=== PATIENT | female | born 1930 | race Caucasian/White ===

== ENCOUNTER 2019-01-05 05:42 | Inpatient (IN) ==
[2019-01-05] MEDS ORDERED: ONDANSETRON 4 MG/2 ML VIAL IV STA (06:21)
[2019-01-05] MEDS ORDERED: SODIUM CHLORIDE 0.9% 500 ML IV STA (06:21)
[2019-01-05 06:33] LABS: Basophils % 0.2 % (0.0-0.8); Eosinophils # 0.1 10*3/uL (0.0-0.87); Eosinophils % 0.5 % (0.00-10.9); Hematocrit 40.4 VOL% (35.7-47.0); Hemoglobin 12.8 GM/DL (12.0-16.0); Immature Granulocytes % 0.7 %; Immature Granulocytes Absolute 0.07 #; Lymphocytes # 0.9 10*3/uL (1.4-4.0); Lymphocytes % 8.6 % (21.3-54.2); Mean Corpuscular HGB Conc 31.7 GM/DL (32-36); Mean Corpuscular Volume 86.3 FL (87-102); Mean Platelet Volume 9.2 FL (9.6-12.0); Monocytes % 6.1 % (1.7-12.7); Neutrophils % 83.9 % (38.7-73.9); Platelet Count 202 T/CUMM (130-400); Red Blood Count 4.68 MC/CUMM (3.8-5.5); Red Cell Distribution Width 16.9 % (9.3-17.3); White Blood Count 10.3 T/CUMM (4-12)
[2019-01-05 07:00] LABS: Alanine Aminotransferase 22 U/L (13-56); Albumin 3.8 G/DL (3.4-5.0); Alkaline Phosphatase 64 U/L (45-117); Aspartate Amino Transferase 19 U/L (0-37); Bilirubin,Total < 0.39 MG/DL (0.2-1.0); Blood Urea Nitrogen 20 MG/DL (7-18); Calcium 9.9 MG/DL (8.5-10.1); Glucose 119 MG/DL (74-106); Total Protein 7.2 G/DL (6.4-8.3)
[2019-01-05 08:38] LABS: Apearance,Urine CLEAR (Clear); Bacteria,Urine Occasional /HPF (Few); Bilirubin,Urine Negative (Negative); Blood, Urine Negative (Negative); Glucose,Urine (UA) Negative (Negative); Hyaline Casts,Urine 13 /LPF (0-3); Ketones,Urine Negative (Negative); Mucus,Urine Occasional /LPF (Occasional); Nitrite,Urine Negative (Negative); Protein,Urine Negative; RBC,Urine <1 /HPF (0-4); Squamous Epithelial Cell,Urine Occasional /HPF (0-10); Urine Color Yellow (Yellow); Urine Specific Gravity 1.012 (1.001-1.035); Urine Urobilinogen < 2.0 EU/DL (0.2-1.0); WBC,Urine <1 /HPF (0-6)
[2019-01-05] MEDS ORDERED: KETOROLAC 30 MG/1 ML VIAL IV STA (09:11)
[2019-01-05] MEDS ORDERED: KETOROLAC 30 MG/1 ML VIAL ONE (09:11)
[2019-01-05] MEDS ORDERED: KETOROLAC 15 MG/1 ML VIAL IV PRN (09:21)
[2019-01-05] MEDS: SODIUM CHLORIDE 0.9% 1,000 ML IV SCH (10:24)
[2019-01-05] MEDS ORDERED: cefTRIAXone 1,000 MG in SYRINGE 1 EACH IV SCH (12:30)
[2019-01-05] MEDS: metroNIDAZOLE INJ 500 MG in PREMIX 1 EACH IV SCH ×2 (12:45→20:54)
[2019-01-05] MEDS: ACETAMINOPHEN 325 MG TABLET PO PRN (13:20)
[2019-01-05] MEDS: ONDANSETRON 4 MG/2 ML VIAL IV PRN (16:48)
[2019-01-05] MEDS: traMADol 50 MG TABLET PO PRN (20:51)
[2019-01-06] MEDS: SODIUM CHLORIDE 0.9% 1,000 ML IV SCH ×2 (01:40→15:15)
[2019-01-06] MEDS: metroNIDAZOLE INJ 500 MG in PREMIX 1 EACH IV SCH ×3 (05:00→22:14)
[2019-01-06 05:37] LABS: Basophils % 0.1 % (0.0-0.8); Eosinophils # 0.1 10*3/uL (0.0-0.87); Eosinophils % 0.7 % (0.00-10.9); Hematocrit 35.5 VOL% (35.7-47.0); Hemoglobin 10.9 GM/DL (12.0-16.0); Immature Granulocytes % 0.4 %; Immature Granulocytes Absolute 0.03 #; Lymphocytes # 0.8 10*3/uL (1.4-4.0); Mean Corpuscular HGB Conc 30.7 GM/DL (32-36); Mean Corpuscular Volume 89.4 FL (87-102); Mean Platelet Volume 9.7 FL (9.6-12.0); Monocytes % 8.1 % (1.7-12.7); Neutrophils % 79.7 % (38.7-73.9); Platelet Count 187 T/CUMM (130-400); Red Blood Count 3.97 MC/CUMM (3.8-5.5); Red Cell Distribution Width 16.8 % (9.3-17.3); White Blood Count 6.9 T/CUMM (4-12)
[2019-01-06 05:52] LABS: Calcium 8.1 MG/DL (8.5-10.1); Osmolality,Calculated 276.7 MOS/KG (273-304)
[2019-01-06] MEDS: CIPROFLOXACIN INJ 400 MG in PREMIX 1 EACH IV SCH ×2 (09:57→23:53)
[2019-01-06] MEDS: ONDANSETRON 4 MG/2 ML VIAL IV PRN (10:45)
[2019-01-06] MEDS: ENOXAPARIN 40 MG/0.4 ML SYRINGE SUBCUT SCH (22:14)
[2019-01-07] MEDS: metroNIDAZOLE INJ 500 MG in PREMIX 1 EACH IV SCH ×3 (05:42→20:48)
[2019-01-07 06:17] LABS: Basophils % 0.2 % (0.0-0.8); Eosinophils # 0.1 10*3/uL (0.0-0.87); Eosinophils % 1.3 % (0.00-10.9); Hemoglobin 10.7 GM/DL (12.0-16.0); Immature Granulocytes % 0.6 %; Immature Granulocytes Absolute 0.04 #; Lymphocytes % 16.6 % (21.3-54.2); Mean Corpuscular HGB Conc 30.6 GM/DL (32-36); Mean Corpuscular Volume 89.5 FL (87-102); Mean Platelet Volume 10.2 FL (9.6-12.0); Monocytes % 8.7 % (1.7-12.7); Neutrophils % 72.6 % (38.7-73.9); Platelet Count 183 T/CUMM (130-400); Red Blood Count 3.91 MC/CUMM (3.8-5.5); Red Cell Distribution Width 16.8 % (9.3-17.3); White Blood Count 6.2 T/CUMM (4-12)
[2019-01-07 06:56] LABS: Calcium 8.3 MG/DL (8.5-10.1); Osmolality,Calculated 277.4 MOS/KG (273-304)
[2019-01-07] MEDS: SODIUM CHLORIDE 0.9% 1,000 ML IV SCH ×2 (08:49→14:26)
[2019-01-07] MEDS: CIPROFLOXACIN INJ 400 MG in PREMIX 1 EACH IV SCH ×2 (09:01→21:57)
[2019-01-07] MEDS: ONDANSETRON 4 MG/2 ML VIAL IV PRN (11:29)
[2019-01-07] MEDS: ENOXAPARIN 40 MG/0.4 ML SYRINGE SUBCUT SCH (20:47)
[2019-01-07] MEDS: traMADol 50 MG TABLET PO PRN (20:51)
[2019-01-08] MEDS: SODIUM CHLORIDE 0.9% 1,000 ML IV SCH ×2 (03:47→17:05)
[2019-01-08] MEDS: metroNIDAZOLE INJ 500 MG in PREMIX 1 EACH IV SCH ×3 (06:29→21:29)
[2019-01-08] MEDS: CIPROFLOXACIN INJ 400 MG in PREMIX 1 EACH IV SCH ×2 (08:58→23:23)
[2019-01-08] MEDS: traMADol 50 MG TABLET PO PRN (19:47)
[2019-01-08] MEDS: ENOXAPARIN 40 MG/0.4 ML SYRINGE SUBCUT SCH (21:28)
[2019-01-08] MEDS: ACETAMINOPHEN 325 MG TABLET PO PRN (23:32)
[2019-01-09] MEDS: metroNIDAZOLE INJ 500 MG in PREMIX 1 EACH IV SCH ×2 (05:55→12:28)
[2019-01-09] MEDS: traMADol 50 MG TABLET PO PRN (08:19)
[2019-01-09] MEDS: CIPROFLOXACIN INJ 400 MG in PREMIX 1 EACH IV SCH (08:48)
[2019-01-09] MEDS: ONDANSETRON 4 MG/2 ML VIAL IV PRN (09:08)
[2019-01-09] MEDS: SODIUM CHLORIDE 0.9% 1,000 ML IV SCH (11:17)
[2019-01-09] MEDS: ENOXAPARIN 40 MG/0.4 ML SYRINGE SUBCUT SCH (21:20)
[2019-01-10] MEDS: ASPIRIN CHEW 81 MG TABLET PO SCH (10:15)
[2019-01-10] MEDS: LISINOPRIL 20 MG TABLET PO SCH (10:15)
[2019-01-10] MEDS: ACETAMINOPHEN 325 MG TABLET PO PRN (10:17)
[2019-01-10] MEDS ORDERED: methylPREDNISolone ACETATE 40 MG/1 ML VIAL INTRAARTIC ONE (16:25)
[2019-01-10] MEDS: PANTOPRAZOLE 40 MG TABLET PO SCH (16:33)
[2019-01-10] MEDS: CALCIUM (CARBONATE)/VITAMIN D 600 MG-400 UNIT TABLET PO SCH (16:33)
[2019-01-10] MEDS ORDERED: SIMVASTATIN 10 MG TABLET PO SCH (21:00)
[2019-01-10] MEDS: ENOXAPARIN 40 MG/0.4 ML SYRINGE SUBCUT SCH (21:13)
[2019-01-11] MEDS ORDERED: LIDOCAINE 1% 20 ML VIAL INFILTRAT ONE (07:00)
[2019-01-11] MEDS: CALCIUM (CARBONATE)/VITAMIN D 600 MG-400 UNIT TABLET PO SCH (09:19)
[2019-01-11] MEDS: PANTOPRAZOLE 40 MG TABLET PO SCH (09:19)
[2019-01-11] MEDS: LISINOPRIL 20 MG TABLET PO SCH (09:20)
[2019-01-11] MEDS: ASPIRIN CHEW 81 MG TABLET PO SCH (09:20)
[2019-01-11] MEDS: ACETAMINOPHEN 325 MG TABLET PO PRN (11:56)
[2019-01-11 12:00] VITALS: BP 142/75
== END 2019-01-11 12:00 | disposition swing bed (61) | DRG 389 ==
LOC: EDUNIT# → EDBD → N.ED 05:42 → N.EDINP 05:42 → N.5E 09:56 → SUATTDRO 01-06 09:08
PROVIDERS: ADMIT Internal Medicine; ATTEND Internal Medicine Geriatric Medicine